=== PATIENT | female | born 1945 | race Caucasian/White ===

== ENCOUNTER 2018-01-11 19:50 | Emergency (ER) | payer MEDICARE ==
[2018-01-11 20:40] LABS: Bilirubin Small (Negative); Blood, Urine Trace (Negative); Clarity Clear (Clear); Glucose, Urine (Dipstick) Negative (Negative); Leukocyte Moderate (Negative); Nitrite Negative (Negative); Protein, Urine (Dipstick) Negative (Neg-Trace); Urobilinogen 0.2 mg/dL (0.2-1.0); pH, Urine 6.5 (5.0-9.0)
[2018-01-11 20:55] LABS: Bacteria/HPF 1+ HPF (None Seen); Squamous Epithelial 0-3 HPF (0-3)
[2018-01-11 20:57] LABS: #Basophils 0.1 thou/uL (0.0-0.2); #Lymphocytes 0.7 thou/uL (1.20-3.40); #Monocytes 0.5 thou/uL (0.11-0.59); #Neutrophils 8.6 thou/uL (1.40-6.50); %Basophils 0.7 % (0.0-1.0); %Eosinophils 0.2 % (0.0-10.0); %Lymphocytes 7.4 % (21.0-51.0); %Monocytes 5.3 % (0.0-10.0); %Neutrophils 86.4 % (42.0-75.0); Hemoglobin 15.5 g/dL (12.0-16.0); Mean Corpuscular HGB CONC 32.6 g/dL (32.0-36.0); Mean Corpuscular Hemoglobin 29.3 pg (27.0-31.0); Mean Platelet Volume 8.3 fL (7.4-10.4); Platelet Count 161 thou/uL (130-400); RBC Distribution Width 12.2 % (11.5-14.5); Red Blood Cell (RBC) Count 5.28 mill/uL (4.20-5.40)
[2018-01-11 20:58] LABS: ALT (SGPT) 21 U/L (8-55); AST (SGOT) 24 U/L (5-34); Albumin 3.9 g/dL (3.4-4.8); Alkaline Phosphatase 60 U/L (40-150); Anion Gap 16 mmol/L (10-20); BUN (Urea Nitrogen) 19 mg/dL (9.8-20.1); Bilirubin, Total 0.8 mg/dL (0.2-1.2); Calc. Creatinine Clearance 0 mL/min (70-130); Calcium 9.6 mg/dL (7.8-10.44); Carbon Dioxide 21 mmol/L (23-31); Chloride 103 mmol/L (98-107); Estimated GFR-MDRD 49; Globulin 2.9 g/dL (2.4-3.5); Glucose 163 mg/dL (83-110); Lipase 22 U/L (8-78); Potassium 3.9 mmol/L (3.5-5.1); Protein, Total 6.8 g/dL (6.0-8.3); Sodium 136 mmol/L (136-145)
[2018-01-11 20:59] LABS: Troponin I Less than 0.010 ng/mL (< 0.028)
[2018-01-11] MEDS ORDERED: Morphine 4 MG/ML Carpuject ONE (21:01)
[2018-01-11] MEDS ORDERED: Ondansetron HCl/PF 4 MG/2 ML Vial ONE (21:01)
--- NOTE | 2018-01-11 23:28 | CT ---
CT OF ABDOMEN AND PELVIS PERFORMED WITH INTRAVENOUS CONTRAST ENHANCEMENT: 01/11/18 HISTORY: Abdominal pain. COMPARISON: A 12/10/14 study. The lung bases show some chronic appearing change. The liver, and spleen are within normal limits of size. Small hypodensity within the right lobe of th e liver was not definitely seen on the previous examination. Potentially a tiny cyst or hemangioma. I ncompletely characterized due to its small size. Pancreas shows no mass or ductal dilatation. The gal lbladder has been removed. There is some ductal prominence which is felt to be on the basis of cholec ystectomy. Right and left adrenal gland and right and left kidneys are normal in size. A left renal cyst is note d. It appears to have increased slightly in size measuring 3.8 cm but has a benign appearance. No obs truction of either kidney. No renal calculi. No significant periaortic or mesenteric adenopathy. The appendix is normal in size, retrocecal in location. CT OF PELVIS PERFORMED WITH CONTRAST ENHANCEMENT: There is no evidence of adenopathy, mass or free fluid. IMPRESSION: 1. Small subcentimeter hypodensity in the right lobe of the liver, possibly a small cyst or yuki ngioma. 2. Postop cholecystectomy change. 3. Left renal cyst. 4. No acute abnormalities of the abdomen or pelvis. 5. No evidence of free air. POS: [facility]
[2018-01-11] MEDS ORDERED: Sodium Chloride 0.9% 2,000 ML ONE (23:40)
[2018-01-11] MEDS ORDERED: Sodium Chloride 0.9% 100 ML ONE ×2 (23:44→23:45)
[2018-01-11] MEDS ORDERED: Piperacillin/Tazobactam 3.375 GM VIAL ONE ×2 (23:44→23:45)
[2018-01-12] MEDS ORDERED: Morphine 4 MG/ML Carpuject ONE
[2018-01-12] MEDS ORDERED: Ondansetron HCl/PF 4 MG/2 ML Vial ONE (00:01)
== END 2018-01-12 00:29 | disposition short-term general hospital (02) ==
LOC: NAV ERS 19:50
DX: N39.0 Urinary tract infection, site not specified (principal); I10 Essential (primary) hypertension; Z79.899 Other long term (current) drug therapy
CPT/HCPCS: 36415; 74177; 80053; 81003; 81015; 83605; 83690; 84484; 85025; 87086; 93005; 96361; 96365; 96375; 96376; J2270; J2405; J2543; J7050

== ENCOUNTER → 2020-02-22 | Emergency (ER) | payer MEDICARE ==
[~2020-02-22] MED LIST: Bacitracin 1 PK ONE; Lidocaine 1% (PF) 30 ML VIAL ONE
== END ==
LOC: NAV ERS 19:37
DX: S61.212A Laceration without foreign body of right middle finger without damage to nail, initial encounter (principal); M81.0 Age-related osteoporosis without current pathological fracture; E66.9 Obesity, unspecified; I10 Essential (primary) hypertension; W27.8XXA Contact with other nonpowered hand tool, initial encounter
CPT/HCPCS: 12001; J2001

== ENCOUNTER 2020-02-29 16:25 | Emergency (ER) | payer MEDICARE | END 2020-02-29 17:14 | disposition home or self-care (01) | LOC: NAV ERS 16:25 | DX: S61.212D Laceration without foreign body of right middle finger without damage to nail, subsequent encounter (principal); M81.0 Age-related osteoporosis without current pathological fracture; I10 Essential (primary) hypertension; E66.9 Obesity, unspecified; Z79.899 Other long term (current) drug therapy ==

== ENCOUNTER 2023-09-29 15:22 | Outpatient (CLI) | payer MEDICARE | END 2023-09-29 15:23 | disposition home or self-care (01) | LOC: NAV RAD 15:22 | PROVIDERS: ATTEND Family Medicine | DX: M17.11 Unilateral primary osteoarthritis, right knee (principal) ==